=== PATIENT | male | born 1995 | race Caucasian/White ===

== ENCOUNTER 2018-08-11 09:06 | Day surgery (SDC) | payer BC ==
[~2018-08-11] VITALS: Ht 188 cm; Wt 77.1 kg
[~2018-08-11 09:06] MED LIST: ATARAX 25 MG TA25 MG PO
[2018-08-11 09:58] VITALS: BP 116/57; Ht 188 cm; Wt 77.1 kg
[2018-08-11] MEDS ORDERED: HYDROCODON-ACE1 EAC7 PO (13:11)
[2018-08-11] MEDS ORDERED: DURICEF500 MG PO (13:11)
--- NOTE | 2018-08-11 14:58 | NUR ---
1457 DC'D IV. CATHETER INTACT. PRESSURE HELD UNTIL BLEEDING STOPPED AT IV SITE. BANDAID APPLIED. 1500 PT UP TO BATHROOM TO VOID AND THEN TO DRESS 1
--- NOTE | 2018-08-11 15:08 | NUR ---
1502 PT READY FOR DISCHARGE. HAS SLING TO RIGHT ARM. DISCHARGE INSTRUCTIONS COVERED WITH BOTH PT AND HIS MOTHER. QUESTIONS ANSWERED. FAMILY HAS DISCHARGE PACKET.
--- NOTE | 2018-08-12 13:38 | OP ---
PATIENT NAME: JAMA DELCID MEDICAL RECORD: [id number] :97 LOCATION:[facility] ADMISSION DATE: SURGEON: JAE COLLINS DO DATE OF OPERATION: 08/11/2018 PROCEDURE PERFORMED: Right fifth metacarpal neck closed reduction and percutaneous pinning. PREOPERATIVE DIAGNOSIS: Closed displaced right fifth metacarpal neck fracture. POSTOPERATIVE DIAGNOSIS: Closed displaced right fifth metacarpal neck fracture. INDICATIONS: Mr. Delcid is a 22-year-old male that struck something with his right fist, fracturing his right fifth metacarpal neck. He was seen in my office and angulation was greater than 50 degrees with apex dorsal angulation. He was informed we can leave it or try to fix it, that he would be at risk for malrotation even if we did fix it, or non-union, damage to nerve or vessels, but we could straighten it out hopefully and can get it lined up better. He was okay with those risks and benefits and signed the consent. SURGEON: Jae Collins DO DESCRIPTION OF PROCEDURE: The patient was taken to the operative suite, laid in the supine position, and given general anesthetic. LMA was placed. He was given 2 grams of Ancef preoperatively. The time-out was performed and everyone was in agreeance with correct side, site, patient, and procedure. The right upper extremity was prepped and draped in sterile fashion. When everyone was in agreeance and ready to start, the right upper extremity was injected with approximately 16 mL of 0.25% Marcaine with epinephrine on the ulnar side of the wrist and around the fracture site. A pin was then placed at the shoulder of the ulnar side of the fifth metacarpal and driven through the distal portion of the shoulder into the shaft, making reduction of the fracture. A second pin was then brought in from the antegrade from the more proximal portion of the shaft and up into the head, lining up her fracture nicely. He did have a small fracture off the ulnar aspect, butterfly fragment. This stayed in a good spot. He did have some mild crossover of the fifth on the fourth, small on the ring finger, with finger flexion cascade, but it was not severe. This was all confirmed on x-ray; AP, oblique, and lateral. Then, the pins were bent and cut. Adaptic was placed over them with 4 x 4s; cast padding; and a 4 x 15 Orthoglass splint was placed in ulnar gutter-type fashion, secured into place with a 4-inch Georgi wrap. The patient was awakened and taken to recovery in stable condition. BLOOD LOSS: Minimal. COMPLICATIONS: None. TRANSINT:[id number] Voice Confirmation ID: [id number] DOCUMENT ID: [id number] OPERATIVE REPORT [id number] JAMA DELCID MICHAEL D, DO at 1338 CC: [id number] DICTATION DATE: 08/11/18 1315 HIM CLERK: 08/11/18 1712 [facility] 08/11/18 [id number] [place] [address]
== END 2018-08-11 15:02 | disposition home or self-care (01) ==
LOC: D.OPS 09:06 → D.PAN 15:15
DX: S62.336A Displaced fracture of neck of fifth metacarpal bone, right hand, initial encounter for closed fracture (principal); W22.8XXA Striking against or struck by other objects, initial encounter